=== PATIENT | female | born 1990 | race Caucasian/White ===

== ENCOUNTER 2020-11-01 22:15 | Emergency (ER) | payer OTHER ==
[2020-11-01 23:10] LABS: HEMOGLOBIN 15.5 gm/dl (12.3-15.3); RED BLOOD COUNT 4.94 M/UL (4.00-5.10); WHITE BLOOD COUNT 9.6 K/UL (4.5-11.0)
[2020-11-01 23:39] LABS: BUN/CREATININE RATIO 13 (0-10)
[2020-11-02] MEDS ORDERED: KEFLEX CAP 250250 MG PO (03:47)
[2020-11-03 09:15] LABS: HBSAG SCREEN Negative (Negative); HEP A AB, IGM Negative (Negative); HEP B CORE AB, IGM Negative (Negative); HEP C VIRUS AB <0.1 (0.0-0.9)
== END 2020-11-02 04:00 | disposition home or self-care (01) ==
LOC: ER1 22:15
PROVIDERS: Family Medicine
DX: N39.0 Urinary tract infection, site not specified (principal); N83.202 Unspecified ovarian cyst, left side; F10.10 Alcohol abuse, uncomplicated; F17.210 Nicotine dependence, cigarettes, uncomplicated
CPT/HCPCS: 71046; 80053; 80074; 81001; 82150; 82550; 82553; 83690; 84484; 84703; 85025; 85379; 85610; 96374; 96375; 99284; G0480; J2405; Q9967